=== PATIENT | female | born 1955 | race Caucasian/White ===

== ENCOUNTER 2022-02-11 06:20 | Day surgery (SDC) | payer MEDICARE, OTHER ==
[~2022-02-11 06:20] MED LIST: Lactated Ringers 1,000 ML IV SCH; Sodium Chloride 0.9% 10 ML Syringe FLUSH PRN
[2022-02-11] MEDS ORDERED: Propofol 200 MG/20 ML SDV IV ONE (06:21)
== END 2022-02-11 08:50 | disposition home or self-care (01) ==
LOC: FB.SDS 06:20
PROVIDERS: ATTEND Surgery
DX: Z12.11 Encounter for screening for malignant neoplasm of colon (principal); Z79.899 Other long term (current) drug therapy; Z79.4 Long term (current) use of insulin; Z79.890 Hormone replacement therapy; Z98.890 Other specified postprocedural states; Z90.49 Acquired absence of other specified parts of digestive tract
CPT/HCPCS: 00812-QZ; 82947; J2704; J7120